=== PATIENT | female | born 1930 | race Caucasian/White ===

== ENCOUNTER → 2017-04-19 | Outpatient (CLI) | payer MEDICARE ==
[~2017-04-19] MED LIST: ALEN70TA5 PO; AMIO200T42 PO; ASCO100072 PO; CALCIUM WITH VITAMIN D PO; CEFD300C37 PO; CHOL2000 PO; ENOX60SY4 SQ; ERGO500017 PO; LEVO75CA2 PO; LOSA100T6 PO; METO-93 PO; MULT-717 PO; SALM1CAP2 PO; TRAZ50TA18 PO; WARF5TAB PO; [UNRECOGNIZED DRUG - CODE] PO
== END | disposition home or self-care (01) ==
LOC: CFH 14:15
PROVIDERS: ATTEND Internal Medicine
DX: Z12.31 Encounter for screening mammogram for malignant neoplasm of breast (principal); M81.0 Age-related osteoporosis without current pathological fracture; Z78.0 Asymptomatic menopausal state
CPT/HCPCS: 77080; G0202

== ENCOUNTER 2019-02-10 23:25 | Emergency (ER) | payer MEDICARE ==
[~2019-02-10] VITALS: Ht 165.1 cm; Wt 70.0 kg
[2019-02-11 01:40] VITALS: BP 145/87
== END 2019-02-11 02:11 | disposition home or self-care (01) ==
LOC: ED 02-11
DX: S00.03XA Contusion of scalp, initial encounter (principal); I11.0 Hypertensive heart disease with heart failure; I50.9 Heart failure, unspecified; I48.91 Unspecified atrial fibrillation; D65 Disseminated intravascular coagulation [defibrination syndrome]; Z95.0 Presence of cardiac pacemaker; W01.0XXA Fall on same level from slipping, tripping and stumbling without subsequent striking against object, initial encounter; Y93.89 Activity, other specified; Y92.009 Unspecified place in unspecified non-institutional (private) residence as the place of occurrence of the external cause; Y99.8 Other external cause status
CPT/HCPCS: 36415; 70450; 80048; 85025; 85610; 99284